=== PATIENT | male | born 2000 | race Caucasian/White ===

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

== ENCOUNTER 2020-01-07 18:24 | Outpatient (CLI) | payer MEDICAID, SELFPAY ==
--- NOTE | 2020-01-07 14:45 | DI.RAD_ITS ---
EXAM: XR HAND RT COMPLETE CLINICAL HISTORY: Hx of injury to R 3rd MCP - ongoing pain/swelling m79.641 pain rt hand. TECHNIQUE: 2D digital imaging was performed. COMPARISON: No exams were available for comparison FINDINGS: BONES: No acute fracture is present. No bony destructive lesion is seen. JOINTS: No dislocation present. SOFT TISSUE: Normal. IMPRESSION: Unremarkable radiographs of the right hand. DATA REPOSITORY: RADIATION DOSE DELIVERED:
[2020-01-09 01:49] LABS: Chlamydia amplified RNA Negative (Negative); N gonorrhoeae amplified RNA Negative (Negative); Source URINE
== END 2020-01-07 18:44 ==
PROVIDERS: PCP Pediatrics; Visit Provider Pediatrics
DX: M79.641 Pain in right hand (principal); Z11.3 Encounter for screening for infections with a predominantly sexual mode of transmission
CPT/HCPCS: 87491; 87591; 73130

== ENCOUNTER 2022-05-26 18:49 | Emergency (ER) | payer MEDICAID, SELFPAY ==
[2022-05-26 18:51] VITALS: BP 138/86; PULSE 103; RESP 16; TEMP 36.8; O2SAT 98
[2022-05-26 19:23] LABS: Abs Immature Grans 0.02 10^3/uL (0.0-0.06); Absolute Basophil Count 0.04 10^3/uL (0.0-0.2); Absolute Eosinophil Count 0.18 10^3/uL (0.0-0.7); Absolute Lymphocyte Count 3.04 10^3/uL (1.2-3.4); Absolute Monocyte Count 1.07 10^3/uL (0.1-0.8); Absolute Neutrophil Count 3.97 10^3/uL (1.2-6.7); Basophils % 0.5; Eosinophils % 2.2; HCT 47.9 % (40.0-50.0); HGB 16.8 g/dL (13.5-17.5); Immature Grans % 0.2; Lymphocytes % 36.5; MCH 29.8 pg (27.0-33.0); MCHC 35.1 % (32.0-36.0); MCV 85 fL (80-95); Monocytes % 12.9; Neutrophils % 47.7; Platelet Count 248 10^3/uL (130-400); RBC 5.63 10^6/uL (4.36-5.78); RDW 11.8 % (11.8-14.1); RDW-SD 36.7 fL; WBC 8.32 10^3/uL (4.4-10.8)
[2022-05-26] MEDS: Normal Saline 1,000 ML 1000 ML IV (19:24)
--- NOTE | 2022-05-26 19:30 | DI.CT_ITS ---
Exam(s) CT ABDOMEN PELVIS W EXAM: CT ABDOMEN PELVIS W CLINICAL HISTORY: RLQ- pain. TECHNIQUE: Imaging Protocol: Axial computed tomography images with coronal and sagittal reformatted images were created and reviewed CONTRAST MATERIAL: Intravenous: Omnipaque 350 Contrast volume:100 ml Oral: yes COMPARISON: No exams were available for comparison FINDINGS: ABDOMEN: Lung Bases: Normal where visualized. Liver: Normal density. No measurable mass. Gallbladder and biliary tract: No radiodense calculus or dilation. Pancreas: Normal density, no abnormal calcifications or inflammatory process. Spleen: Normal. Kidneys: Normal size, contour and axis. No radiodense stones or obstructive uropathy. No suspicious m asses seen. Adrenal glands: No masses seen. Abdominal Aorta: Abdominal portion non-dilated. Soft tissues: Unremarkable. PELVIS: Bladder: No gross wall thickening. No calculi.No focal mass. Bowel: No obstruction. Marked diffuse wall thickening of the colon, consistent with colitis. No pne umatosis. Small bowel and stomach unremarkable. Appendix normal. Peritoneal cavity: No ascites, collection or mesenteric inflammatory response. Bones: Within normal limits for age. Reproductive organs: Within normal limits. Lymph nodes: Unremarkable. Impression: Pancolitis. RADIATION DOSE DELIVERED: 629.58mGy.cm Total DLP DATA REPOSITORY: All CT scans at this facility are submitted to the National Radiology Data Registry (NRDR) Dose Index Registry (DIR) with the [employer] (ACR). RADIATION OPTIMIZATION: All CT scans at this facility use at least one of these dose optimization te chniques: automated exposure control; mA and/or kV adjustment per patient size (includes targeted exa ms where dose is matched to clinical indication); or iterative reconstruction.
[2022-05-26 19:37] LABS: ALT 43 U/L (16-63); AST 22 U/L (15-37); Albumin 4.3 g/dL (3.4-5.0); Alkaline Phosphatase 89 U/L (46-116); Anion Gap 7.1 mmol/L (3-11); BUN 12 mg/dL (7-18); Bilirubin, Total 0.2 mg/dL (0.2-1.0); CO2 30.9 mmol/L (21.0-32.0); CREATININE 0.9 mg/dL (0.70-1.30); Calcium 9.7 mg/dL (8.5-10.1); Chloride 99 mmol/L (98-107); Estimated GFR 123.84 (mL/min/1.73m2); Glucose 103 mg/dL (74-106); Lipase 23 U/L (16-77); Magnesium 1.8 mg/dL (1.8-2.4); Potassium 3.7 mmol/L (3.5-5.1); Sodium 137 mmol/L (136-145); Total Protein 8.3 g/dL (6.4-8.2)
[2022-05-26] MEDS: ACETAMINOPHEN 1,000 MG/100 ML BTL 400 MG IVPB (19:47)
--- NOTE | 2022-05-26 21:08 | W.ED.GENAD ---
Discharge Plan Disposition Patient Disposition: Home Discharge Details Clinical Impression: Colitis Primary Care Provider: Nigel Clayton ED Provider: Vidal Jensen Home Meds and New Rx's Prescriptions: New azithromycin 500 mg tablet 500 mg PO DAILY 5 Days Qty: 5 0RF Continued nicotine (polacrilex) 2 mg gum 2 mg BC Q2H Qty: 50 10RF Rx Instructions: Use as instructed. Cinnamon flavor if possible methylphenidate HCl [Concerta] 36 mg tablet extended release 24hr 36 mg PO QAM MDD 36 mg Qty: 30 0RF Discharge Instructions Instructions: Colitis (ED) Additional Instructions: At this time you should stop using all laxatives as this may be contributing to your symptoms. You have been prescribed a antibiotic and you should wait 24 hours before starting this to see if stopping the laxatives resolves your symptoms. If you develop any significant worsening of blood in your stool, significant bleeding in your stool, lightheadedness or change in condition such as return of fever or severe pain please return to the emergency department for reassessment otherwise follow-up with your primary care provider for recheck of your symptoms next week. Referrals: Nigel Clayton MD [Primary Care Provider] - 1 week (For reassessment if not improving) Medical Decision Making Patient presenting to the emergency department for chief complaint of abdominal pain. Patient reports that this started 5 days ago and he thought he had a fever and chills for 3 days which seems to resolve but patient continuing to have discomfort. Patient did think he had some constipation and has been taking laxatives which has made him start having diarrhea. He did question if there is potential blood in the stool but states it was mixed in not bleeding when he wiped no other bleeding noted. Patient denies any history of bloody diarrhea, recent travel, drinking stream water that was untreated, or anyone else in home with similar symptoms. Physical exam shows significant tenderness to the right lower quadrant specifically over McBurney's point. Patient has negative Zhang sign, hypoactive bowel sounds but otherwise unremarkable exam. We will plan on checking labs and CT imaging. Review of labs show a overall unremarkable CBC with slightly elevated monocytes at 1.07. CMP is unremarkable except for slightly elevated total protein of 8.3. Lipase is also within normal range. Review of CT imaging and radiologist interpretation shows that patient has pancolitis. Given report of fever, bloody diarrhea, and CT imaging report of pancolitis we will give patient empiric antibiotics of azithromycin for 5 days but will have patient wait 24 hours before starting prescription due to the significant use of laxatives that may also be source of discomfort. After discussion of diagnosis and plan of care patient has no further needs, questions, or concerns and states clear understanding to return to the emergency department for any worsening symptoms. This documentation was generated using [employer] dictation system, please disregard any oddities of phrase or misspellings. Imaging Data Radiologic Study: Imaging: CT Scan Radiologist's impression: Exam(s) PROCEDURE INFORMATION: Exam: CT Abdomen And Pelvis With Contrast Exam date and time: 05/26/2022 9:13 PM Age: 22 years old Clinical indication: Abdominal pain; Localized; Right lower quadrant (rlq); Additional info: Rlq pain TECHNIQUE: Imaging protocol: Computed tomography of the abdomen and pelvis with contrast. Radiation optimization: All CT scans at this facility use at least one of these dose optimization techniques: automated exposure control; mA and/or kV adjustment per patient size (includes targeted exams where dose is matched to clinical indication); or iterative reconstruction. Contrast material: OMNI 350; Contrast volume: 100 ml; Contrast route: INTRAVENOUS (IV); COMPARISON: No relevant prior studies available. FINDINGS: Liver: Normal. No mass. Gallbladder and bile ducts: Normal. No calcified stones. No ductal dilation. Pancreas: Normal. No ductal dilation. Spleen: Normal. No splenomegaly. Adrenal glands: Normal. No mass. Kidneys and ureters: Normal. No hydronephrosis. Stomach and bowel: Mucosal thickening of the colon. No evidence of bowel obstruction. Appendix: Normal appendix. Intraperitoneal space: Unremarkable. No free air. No significant fluid collection. Vasculature: Unremarkable. No abdominal aortic aneurysm. Lymph nodes: Unremarkable. No enlarged lymph nodes. Urinary bladder: Unremarkable as visualized. Reproductive: Unremarkable as visualized. Bones/joints: Unremarkable. No acute fracture. Soft tissues: Unremarkable. IMPRESSION: Pancolitis. Lab Data Lab results reviewed: Yes I reviewed the patient's lab results. HPI General Mode of arrival: ambulatory. Date/Time Provider Initiated Documentation: 05/26/22 19:14. Limitations to Documentation: no limitations. Information obtained by: patient and RN notes reviewed. History of Present Illness 22 year old M presents to the emergency department with the chief complaint of Abdominal pain, described as moderate, with intensity rated at 6. Quality is described as aching, and is localized to the abdomen. Patient reports no radiation. Patient started experiencing this day(s) (5) and it has been constant. No relieving factors improve symptom(s), No exacerbating factors reported . Patient did receive the following treatments prior to arrival, NSAID Related Data Home Medications Medication Instructions Recorded Confirmed nicotine (polacrilex) 2 mg gum 2 mg buccal Q2H #50 ea 11/12/20 01/29/21 methylphenidate HCl 36 mg 36 mg PO QAM #30 tabs 01/15/21 01/29/21 tablet,extended release 24 hr (Concerta) azithromycin 500 mg tablet 500 mg PO DAILY 5 days #5 tabs 05/26/22 Previous Rx's Medication Instructions Recorded nicotine (polacrilex) 2 mg gum 2 mg buccal Q2H #50 ea 11/12/20 methylphenidate HCl 36 mg 36 mg PO QAM #30 tabs 01/15/21 tablet,extended release 24 hr (Concerta) azithromycin 500 mg tablet 500 mg PO DAILY 5 days #5 tabs 05/26/22 Allergies Allergy/AdvReac Type Severity Reaction Status Date / Time No Known Allergies Allergy Verified 05/26/22 18:54 General Stated Complaint: Abd Prob ALINE: 3 Review of Systems Constitutional Constitutional: Denies chills, Denies fever(s) and Reports poor appetite Cardiovascular Cardiovascular: Denies chest pain and Denies dyspnea Respiratory Respiratory: Denies cough and Denies dyspnea Gastrointestinal Gastrointestinal: Reports as per HPI, Reports abdominal pain, Denies melena, Denies change in bowel habits, Denies constipation, Reports diarrhea, Reports nausea and Denies vomiting Genitourinary Genitourinary: Denies hematuria, Denies difficulty urinating, Denies urinary hesitancy, Denies urinary incontinence and Denies urinary urgency Integumentary/Breasts Skin/Breast: Denies rash PFSH All Active Problems (Updated 05/26/22 @ 22:04 by Vidal Jensen NP) Colitis (Acute) Chewing tobacco nicotine dependence (Acute) Snoring (Chronic) Sleep apnea - features Routine child health exam (Acute 06/18/15) Normal weight, pediatric, BMI 5th to 84th percentile for age (Acute 06/18/15) Facial trauma (Acute 06/18/15) Chain saw injury spring 2015. Facial nerve and parotid gland injury Attention deficit hyperactivity disorder (ADHD), combined type (Acute 01/03/15) Laceration of foot (Acute 11/29/13) Crush injury of foot (Acute 11/29/13) Medical History Allergic rhinitis Eczema Injury of right wrist Murmur, cardiac Grade II/ systolic ejection murmur. Seen by Dr. Vogel. 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 Do you feel safe at home: Yes Exam Const General: cooperative Orientation: alert, awake and oriented x3 Resp Effort & Inspection: normal respiratory effort and able to speak in complete sentences Auscultation: clear to auscultation bilaterally Cardio Rate: regular rate Rhythm: regular rhythm Heart Sounds: S1 normal and S2 normal GI Inspection: normal to inspection Palpation: soft, no hepatosplenomegaly, not firm, no guarding, no masses, no pulsatile masses, not rigid, no splenomegaly and tender in the RLQ, at McBurney's point and Rovsing's sign positive; Zhang's sign negative Auscultation: hypoactive bowel sounds Back/Spine/Pelvis Back: no CVA tenderness Neuro General: patient alert, patient awake, patient oriented x3, gait normal and moves all extremities Course Vital Signs Vital signs: Vital Signs Temperature 36.8 C 05/26/22 18:51 Pulse 103 H 05/26/22 18:51 Respiratory Rate 16 05/26/22 18:51 Blood Pressure 138/86 05/26/22 18:51 Pulse Oximetry 98 05/26/22 18:51 Temperature 36.8 C 05/26/22 18:51 Temperature Source Oral 05/26/22 18:51 Pulse 103 H 05/26/22 18:51 Respiratory Rate 16 05/26/22 18:51 Respiratory Effort Normal 05/26/22 18:53 Blood Pressure 138/86 05/26/22 18:51 Blood Pressure Position Sitting 05/26/22 18:51 Pulse Oximetry 98 05/26/22 18:51 Oxygen Delivery Method Room Air 05/26/22 18:51 Oxygen Flow Rate 0 05/26/22 18:51 Pain Level 6 05/26/22 20:00 Lab/Test Results Lab/Test Results: Laboratory Tests Range/Units 05/26/22 05/26/22 19:04 19:04 WBC (4.4-10.8) 10^3/uL 8.32 RBC (4.36-5.78) 10^6/uL 5.63 Hgb (13.5-17.5) g/dL 16.8 Hct (40.0-50.0) % 47.9 MCV (80-95) fL 85 MCH (27.0-33.0) pg 29.8 MCHC (32.0-36.0) % 35.1 RDW (11.8-14.1) % 11.8 Plt Count (130-400) 10^3/uL 248 MPV (8.0-11.0) fL 10.0 Immature Gran % 0.2 Neutrophils % 47.7 Lymphocytes % 36.5 Monocytes % 12.9 Eosinophils % 2.2 Basophils % 0.5 Nucleated RBC % (0.0-0.3) % 0.0 Absolute Neutrophils (1.2-6.7) 10^3/uL 3.97 Absolute Lymphocytes (1.2-3.4) 10^3/uL 3.04 Absolute Monocytes (0.1-0.8) 10^3/uL 1.07 H Absolute Eosinophils (0.0-0.7) 10^3/uL 0.18 Absolute Basophils (0.0-0.2) 10^3/uL 0.04 Sodium (136-145) mmol/L 137 Potassium (3.5-5.1) mmol/L 3.7 Chloride (98-107) mmol/L 99 Carbon Dioxide (21.0-32.0) mmol/L 30.9 Anion Gap (3-11) mmol/L 7.1 BUN (7-18) mg/dL 12 Creatinine (0.70-1.30) mg/dL 0.9 Est GFR (CKD-EPI 2020) (mL/min/1.73m2) 123.84 Glucose (74-106) mg/dL 103 Calcium (8.5-10.1) mg/dL 9.7 Magnesium (1.8-2.4) mg/dL 1.8 Total Bilirubin (0.2-1.0) mg/dL 0.2 AST (15-37) U/L 22 ALT (16-63) U/L 43 Alkaline Phosphatase (46-116) U/L 89 Total Protein (6.4-8.2) g/dL 8.3 H Albumin (3.4-5.0) g/dL 4.3 Lipase (16-77) U/L 23 PAWSS Have you Been Recently Intoxicated or Drunk Within the Last 30 days?: No Have you Ever Experienced Previous Episodes of Alcohol Withdrawal?: No Have you ever Experienced Withdrawal Seizures?: No Have you ever Experienced Delirium Tremens(DT)s?: No Have you ever undergone Alcohol Rehabilitation Treatment (i.e, inpt ot outpatient treatment programs)?: No Have you ever Experienced Blackouts?: No Have you ever Combined Alcohol with other Downers within the last 90 days?: No Have you ever Combined Alcohol with any other Substance of Abuse during the last 90 days?: No Result: 0
[2022-05-26] MEDS: Breeza Beverage 473 ML BTL 946 ML PO (21:13)
[2022-05-26] MEDS: Omnipaque 350 MG/ML 100 ML BTL IJ (21:15)
[2022-05-26] MEDS: Normal Saline - Diluent 50 ML VIAL IJ (21:16)
[2022-05-26 21:48] LABS: Bilirubin Negative (Negative); Blood Negative (Negative); Clarity Clear (Clear); Glucose Negative (Negative); Ketones Negative (Negative); Leukocyte Esterase Negative (Negative); Nitrite Negative (Negative); Urobilinogen 0.2 mg/dL (Up to 0.2); pH 6.5 (5-8)
--- NOTE | 2022-05-26 21:56 | DI.VRAD_ITS ---
PROCEDURE INFORMATION: Exam: CT Abdomen And Pelvis With Contrast Exam date and time: 05/26/2022 9:13 PM Age: 22 years old Clinical indication: Abdominal pain; Localized; Right lower quadrant (rlq); Additional info: Rlq pain TECHNIQUE: Imaging protocol: Computed tomography of the abdomen and pelvis with contrast. Radiation optimization: All CT scans at this facility use at least one of these dose optimization techniques: automated exposure control; mA and/or kV adjustment per patient size (includes targeted exams where dose is matched to clinical indication); or iterative reconstruction. Contrast material: OMNI 350; Contrast volume: 100 ml; Contrast route: INTRAVENOUS (IV); COMPARISON: No relevant prior studies available. FINDINGS: Liver: Normal. No mass. Gallbladder and bile ducts: Normal. No calcified stones. No ductal dilation. Pancreas: Normal. No ductal dilation. Spleen: Normal. No splenomegaly. Adrenal glands: Normal. No mass. Kidneys and ureters: Normal. No hydronephrosis. Stomach and bowel: Mucosal thickening of the colon. No evidence of bowel obstruction. Appendix: Normal appendix. Intraperitoneal space: Unremarkable. No free air. No significant fluid collection. Vasculature: Unremarkable. No abdominal aortic aneurysm. Lymph nodes: Unremarkable. No enlarged lymph nodes. Urinary bladder: Unremarkable as visualized. Reproductive: Unremarkable as visualized. Bones/joints: Unremarkable. No acute fracture. Soft tissues: Unremarkable. IMPRESSION: Pancolitis. Dictated and Authenticated by: Cliff Monroy MD. Ordering:MINESH Drake MD
[2022-05-26 22:31] VITALS: BP 132/80; PULSE 99; RESP 18; O2SAT 98
== END 2022-05-26 22:38 | disposition home or self-care (01) ==
PROVIDERS: Emergency Provider Nurse Practitioner Family; PCP Pediatrics
DX: K51.00 Ulcerative (chronic) pancolitis without complications (principal); D72.821 Monocytosis (symptomatic); R79.82 Elevated C-reactive protein (CRP)
CPT/HCPCS: 80053; 83690; 96361; 96374; 99285; 74177; 81003; 83735; 85025; 99284; J0131; J3490

== ENCOUNTER 2023-09-08 16:11 | Emergency (ER) | payer MEDICAID, SELFPAY ==
[2023-09-08 16:19] VITALS: BP 130/62; PULSE 80; RESP 15; TEMP 37; O2SAT 100
--- NOTE | 2023-09-08 17:40 | W.ED.GENAD ---
Discharge Plan Disposition Patient Disposition: Home Condition: Good Discharge Details Clinical Impression: Finger laceration with complication, Fracture of phalanx of digit of hand Primary Care Provider: Nigel Clayton ED Provider: Jarad Acuna Meds and New Rx's Prescriptions: New cephalexin 500 mg capsule 500 mg PO Q6H Qty: 36 0RF Continued nicotine (polacrilex) 2 mg gum 2 mg BC Q2H Qty: 50 10RF Rx Instructions: Use as instructed. Cinnamon flavor if possible methylphenidate HCl [Concerta] 36 mg tablet extended release 24hr 36 mg PO QAM MDD 36 mg Qty: 30 0RF Discharge Instructions Additional Instructions: You were seen in the ED for a chop saw injury to your left index finger. This injury did damage the bone and the joint of your finger. There is also loss of skin and tissue due to the injury. Your tendons appear to be intact. You should take the antibiotic prescribed every 6 hours for 10 days. Keep the hand elevated for the next few days to help with swelling. You may ice on and off. You may use acetaminophen or ibuprofen for pain as needed. Wear the splint at all times. Dressing changes once a day beginning on Tuesday morning. Yellow dressing may be removed Tuesday or Tuesday. You will receive a call from the [facility] hand clinic to schedule an appointment for follow-up. You should return to the ED for any increasing pain, swelling, redness, fever, drainage or evidence of infection. Referrals: [facility] [Provider Group] ([facility] will contact you) Discharge Data Discharge Date/Time-TO BE ENTERED AT DEPARTURE: 09/08/23 21:30 HPI General Mode of arrival: ambulatory. Date/Time Provider Initiated Documentation: 09/08/23 16:31. Limitations to Documentation: no limitations. Information obtained by: patient and RN notes reviewed. HPI Narrative: Patient presents to ED with left index finger injury. Patient is right-hand dominant. He was using a miter/chop saw and received laceration to the left index finger, radial side at the level of PIP joint. Denies any numbness or tingling to the finger. Has minor scratches on the left long finger. Denies any other injury. Related Data Home Medications ?Medication ?Instructions ?Recorded ?Confirmed nicotine (polacrilex) 2 mg gum 2 mg buccal Q2H #50 ea 11/12/20 09/08/23 methylphenidate HCl 36 mg 36 mg PO QAM #30 tabs 01/15/21 09/08/23 tablet,extended release 24 hr (Concerta) cephalexin 500 mg capsule 500 mg PO Q6H #36 caps 09/08/23 Previous Rx's ?Medication ?Instructions ?Recorded nicotine (polacrilex) 2 mg gum 2 mg buccal Q2H #50 ea 11/12/20 methylphenidate HCl 36 mg 36 mg PO QAM #30 tabs 01/15/21 tablet,extended release 24 hr (Concerta) cephalexin 500 mg capsule 500 mg PO Q6H #36 caps 09/08/23 Allergies Allergy/AdvReac Type Severity Reaction Status Date / Time No Known Allergies Allergy Verified 05/26/22 18:54 General Stated Complaint: Laceration ALINE: 4 Review of Systems Narrative: Per HPI Exam Narrative Exam Narrative: Const: WDWN male in NAD. VS per triage. HEENT: NC/AT. Normal facial exam. Neck: Supple. Trachea midline. Lungs: Normal respiratory effort. Neuro: A+O x 3. Normal speech, mentation, gait. Cranial nerves II - XII grossly intact. No gross motor or sensory deficit. Ext: Left index finger with large flap laceration at the level of the PIP joint, radial side. PIP joint is very loose. Reports sensation both sides of distal index finger. Flexor and extensor tendon appears in tact on exam. Course Vital Signs Vital signs: Vital Signs Temperature 98.6 F 09/08/23 16:19 Pulse 80 09/08/23 16:19 Respiratory Rate 15 09/08/23 16:19 Blood Pressure 130/62 09/08/23 16:19 Pulse Oximetry 100 09/08/23 16:19 Temperature 98.6 F 09/08/23 16:19 Temperature Source Tympanic 09/08/23 16:19 Pulse 80 09/08/23 16:19 Respiratory Rate 15 09/08/23 16:19 Respiratory Effort Normal 09/08/23 17:35 Blood Pressure 130/62 09/08/23 16:19 Blood Pressure Position Sitting 09/08/23 16:19 Pulse Oximetry 100 09/08/23 16:19 Oxygen Delivery Method Room Air 09/08/23 16:19 Oxygen Flow Rate 0 09/08/23 16:19 Pain Level 6 09/08/23 16:19 Procedures Laceration Laceration 1: Site: hand Side (If applicable): left Size (cm): 3 Description: flap, irregular and clean Pre-repair: wound explored, irrigated extensively and extensive debridement (macerated piece of skin removed) Skin layer closed with: nylon Size (cm): 5-0 Number of sutures: 4 Technique: simple, interrupted Nerve Block Nerve Block 1: Local Anesthetic: Bupivicaine 0.5% Amount of anesthesia used (mL): 2 Side: left Nerve Blocks: digital Procedure Successful: Yes Patient Tolerated Procedure: well Complications: none Medical Decision Making Patient presenting to ED with left index finger injury related to chop saw. Exam suggest an unstable PIP joint. Flexor and extensor tendons appear to be intact. Digital nerve block performed with bupivacaine and patient sent to x-ray. Tetanus updated. X-ray per my review with evidence of bone loss consistent with saw injury. There is a small avulsed piece of bone noted on oblique. Case discussed with Dr. Bains from orthopedics here. Recommends good washout, loose closure, antibiotics, follow-up with hand. Call placed to [facility] to speak with ortho hand to discuss plan and follow-up. Agreed with plan as outlined with Xeroform dressing and splinting. Clinic will reach out to patient to arrange for follow-up. Nerve block was very effective. Wound was irrigated out with 2+ liters of normal saline. A chunk of macerated skin and tissue resulted in defect towards the palmar aspect of the flap wound. This was debrided. Flap was then sutured loosely to bring the edges together. Bacitracin and Xeroform dressing applied. Gauze wrap and aluminum foam splint placed. Patient placed on cephalexin 500 mg every 6 hours with first dose given tonight and initial 4 tablet bottle given pending patient getting to pharmacy. Wound care and dressing changes discussed. Return precautions discussed. Patient discharged home. Imaging Data Radiologic Study: Attestation: I personally reviewed and interpreted this imaging study as follows: Imaging: X-Ray My impression: Radial side condyle of the proximal phalanx is missing and appears to have been sawed off. Significant soft tissue injury noted. Small apparent avulsed bone noted on oblique view. Quality:SDOH Health Related Social Needs: No Data to Display PFSH All Active Problems Allergic rhinitis (Acute) Fracture of phalanx of digit of hand (Acute) Finger laceration with complication (Acute) Chewing tobacco nicotine dependence (Acute) Snoring (Chronic) Sleep apnea - features Facial trauma (Acute 06/18/15) Chain saw injury spring 2015. Facial nerve and parotid gland injury Medical History Attention deficit hyperactivity disorder (ADHD), combined type (01/03/15) Murmur, cardiac Grade II/ systolic ejection murmur. Seen by Dr. Vogel. 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
--- NOTE | 2023-09-08 17:45 | DI.RAD_ITS ---
Exam(s) XR FINGER LT INDEX EXAM: XR FINGER LT INDEX CLINICAL HISTORY: trauma/laceration. TECHNIQUE: 2D digital imaging was performed. COMPARISON: No exams were available for comparison FINDINGS: 3 views Soft tissue avulsion laceration evident on the lateral aspect of the 2nd-index finger. There is over lying bandage material. There is ill-defined oblique defect in the lateral aspect of the head of the proximal phalanx. There is only a small 1 millimeter adjacent fragment. IMPRESSION: Probable saw-type fracture on the lateral aspect of the head of the proximal phalanx with overlying s kin/subcutaneous tissue laceration. DATA REPOSITORY: RADIATION DOSE DELIVERED:
[2023-09-08] MEDS: Bupivacaine 0.5% Pres-Free 30 ML VIAL IJ (17:57)
[2023-09-08] MEDS: Tetanus & Diphtheria Tox,ADULT 0.5 ML VIAL IM (18:15)
[2023-09-08] MEDS: Cephalexin 500 MG CAP PO (19:10)
[2023-09-08] MEDS: Cephalexin 500 MG CAP, 4 CAPS/BTL PO (21:20)
== END 2023-09-08 21:30 | disposition home or self-care (01) ==
PROVIDERS: Emergency Provider Emergency Medicine; PCP Pediatrics
DX: S62.641B Nondisplaced fracture of proximal phalanx of left index finger, initial encounter for open fracture (principal); W27.0XXA Contact with workbench tool, initial encounter; Y93.89 Activity, other specified; Z23 Encounter for immunization; F17.220 Nicotine dependence, chewing tobacco, uncomplicated
CPT/HCPCS: 12002; 90471; 90714; 99283; 73140; J0665